=== PATIENT | male | born 1935 | race Caucasian/White ===

== ENCOUNTER → 2018-12-11 09:36 | Outpatient (CLI) | payer MEDICARE, OTHER, SELFPAY ==
--- NOTE | 2018-12-11 | DI.US.S_ITS ---
PROCEDURE: US CAROTID DOPPLER BI INDICATIONS: STENOSIS TECHNIQUE: Color and pulse Doppler interrogation was performed of both carotid systems, with image documentation and velocity measurements. COMPARISON: [facility], , CAROTID ARTERY DOPPLER BILAT, 11/07/2017, 10:27. FINDINGS: Stenosis calculations are based on SRU (Society of Radiologists in Ultrasound) criteria. Right side: Brachial blood pressure: 181/94 mm Hg. Common carotid artery peak systolic velocity: 96 cm/sec. Internal carotid artery peak systolic velocity: 117 cm/sec. Internal carotid artery end diastolic velocity: 43 cm/sec. External carotid artery peak systolic velocity: 71 cm/sec. ICA/CCA peak systolic ratio: 1.22. Curiel scale imaging description: Focal coarse calcified plaque at the proximal internal carotid artery causing distal spectral broadening of the waveform. Percent internal carotid artery stenosis: Less than 50% (by peak systolic velocity criteria). Vertebral artery: Flow direction is antegrade. Left side: Brachial blood pressure: 165/95 mm Hg. Common carotid artery peak systolic velocity: 93 cm/sec. Internal carotid artery peak systolic velocity: 163 cm/sec. Internal carotid artery end diastolic velocity: 35 cm/sec. External carotid artery peak systolic velocity: 96 cm/sec. ICA/CCA peak systolic ratio: 1.76. Curiel scale imaging description: Mild coarse calcification at the carotid bulb. Spectral broadening of the proximal ICA waveform. Percent internal carotid artery stenosis: 50-69%.. Vertebral artery: Flow direction is antegrade. IMPRESSION: 1. Stable, focal plaque at the right proximal ICA causing a stenosis estimated to be just less than 50%, stable. 2. Stable stenosis of the left ICA estimated to be 50-69%. 3. Antegrade vertebral artery flow bilaterally. Dictated by: Cally Tirado M.D. on 12/11/2018 at 10:46 Approved by: Cally Tirado M.D. on 12/11/2018 at 10:58
== END ==
PROVIDERS: PCP Family Medicine Geriatric Medicine; Visit Provider Family Medicine Geriatric Medicine
DX: I65.23 Occlusion and stenosis of bilateral carotid arteries (principal)
CPT/HCPCS: 93880

== ENCOUNTER 2019-10-09 09:58 | Day surgery (SDC) | payer MEDICARE, OTHER, SELFPAY ==
[2019-10-09] VITALS (9 sets, daily range): BP systolic 128–147; BP diastolic 64–77; PULSE 71–78; RESP 10–16; TEMP 36–37; O2SAT 68–99; BMI 22.3
[2019-10-09] MEDS: SODIUM CHLORIDE 0.9% 1,000 ML 200 ML IV (10:44)
[2019-10-09] MEDS: LIDOCAINE 4% SOLN 50 ML 20 ML TOP (11:42)
--- NOTE | 2019-10-09 11:44 | PM.PREOP ---
Pre-operative Note Interval Note History & Physical reviewed/Exam performed by Physician: Yes Changes to H&P: No ASA Class (for procedural sedation): II
[2019-10-09] MEDS: fentaNYL 250 MCG/5 ML INJ IV (12:03)
[2019-10-09] MEDS: MIDAZOLAM 5 MG/5 ML VIAL IV (12:03)
--- NOTE | 2019-10-09 12:12 | PM.OP.ENDO ---
Operative Date/Time/Diagnoses Date of procedure: 10/09/19 Time of procedure: 12:12 Pre-op diagnosis: Screening colonoscopy. History of esophageal ulcer Post-op diagnosis: same (Ulcer in the esophagus is healed. Unable to perform complete colonoscopy due to tortuosity and extensive diverticulosis) Procedure & Clinicians Study performed: EGD. Flexible sigmoidoscopy to 40 cm. Same procedure as scheduled: Yes Indications: History of esophageal ulcer without symptoms. Scope done to confirm healing. Attempt at screening colonoscopy. Unable to get beyond portion of the sigmoid due to severe tortuosity and extensive diverticulosis with probable stricture Surgeon: Rocky De La Torre Procedure Notes SCOAP/Timeout: Performed Procedure in detail: The patient had topical anesthetic applied to oropharynx. She was placed in left lateral decubitus position and underwent IV sedation directed by the surgeon consisting of fentanyl and Versed. A bite block was inserted and the scope was advanced through it into the esophagus. The esophagus was unremarkable. GE junction was noted at 30 cm from the incisors. The stomach insufflated well. There were no lesions seen in the body, antrum or at the incisura. The pyloric channel was patent. The duodenum was unremarkable to the 4th part. The scope was brought back into the stomach and retroflexed. The proximal stomach normal in appearance. The scope was straightened and brought out through the esophagus again. No lesions were seen. There was no narrowing. There was a sharp demarcation between the esophagus and gastric mucosa. There was no evidence of Najera's esophagus. The scope was removed and the patient tolerated the procedure well. The patient was repositioned and given additional sedation. Digital exam was remarkable for a prostate that was not palpable the scope was inserted and advanced with great care through a mind field of diverticuli in the sigmoid colon. There was a great deal tortuosity and a reached a point where I could not torque the scope any further despite it being a pediatric scope and I still could not identify a lumen. I was also having to apply a fair amount of pressure to get to that point. I a was simply unable to advance. The patient was repositioned and I re-evaluated the area and still could not get beyond. After spending about 15 minutes trying to get beyond this point I abandoned the procedure. Patient will be scheduled for barium enema Scope withdrawal time: Not applicable Sedation minutes: 27 Findings: diverticulosis (Extensive sigmoid diverticulosis with probable stricture) Specimen(s): none sent Complications: none Post-procedure Recommendations: Other recommendation (Barium enema to evaluate the remainder of the colon) Follow up: as needed Disposition: PACU
== END 2019-10-09 13:25 | disposition home or self-care (01) ==
PROVIDERS: PCP Family Medicine Geriatric Medicine; Visit Provider Specialist
PROC: 0DJ08ZZ Inspection of Upper Intestinal Tract, Via Natural or Artificial Opening Endoscopic (ICD-10-PCS; CPT 43235; principal; 2019-10-09 11:45)
PROC: 0DJD8ZZ Inspection of Lower Intestinal Tract, Via Natural or Artificial Opening Endoscopic (ICD-10-PCS; CPT 45378; 2019-10-09 11:45)
DX: Z12.11 Encounter for screening for malignant neoplasm of colon (principal); Z53.09 Procedure and treatment not carried out because of other contraindication; Z86.010 Personal history of colon polyps; Z87.19 Personal history of other diseases of the digestive system; I10 Essential (primary) hypertension; Z85.46 Personal history of malignant neoplasm of prostate
CPT/HCPCS: 43235; G0105; 99152; J2250; J3010

== ENCOUNTER → 2019-11-19 13:03 | Outpatient (CLI) | payer MEDICARE, OTHER, SELFPAY ==
--- NOTE | 2019-11-19 | DI.US.S_ITS ---
PROCEDURE: US CAROTID DOPPLER BI INDICATIONS: OCCLUSION AND STENOSISOF CAROTID ARTERIES TECHNIQUE: Color and pulse Doppler interrogation was performed of both carotid systems, with image documentation and velocity measurements. COMPARISON: [facility], , US CAROTID DOPPLER BI, 12/11/2018, 10:00. [facility], , CAROTID ARTERY DOPPLER BILAT, 11/07/2017, 10:27. FINDINGS: Stenosis calculations are based on SRU (Society of Radiologists in Ultrasound) criteria. Right side: Brachial blood pressure: 152/81 mm Hg. Common carotid artery peak systolic velocity: 101 cm/sec. Internal carotid artery peak systolic velocity: 151 cm/sec. Internal carotid artery end diastolic velocity: 42 cm/sec. External carotid artery peak systolic velocity: 96 cm/sec. ICA/CCA peak systolic ratio: 1.5. Curiel scale imaging description: Scattered areas of calcific and prominent soft plaque, appreciable stenosis. Percent internal carotid artery stenosis: 50-69% stenosis proximal right internal carotid artery. This represents a significant interval worsening from the comparison study 12/11/18.. Left side: Brachial blood pressure: 161/81 mm Hg. Common carotid artery peak systolic velocity: 110 cm/sec. Internal carotid artery peak systolic velocity: 227 cm/sec. Internal carotid artery end diastolic velocity: 42 cm/sec. External carotid artery peak systolic velocity: 172 cm/sec. ICA/CCA peak systolic ratio: 2.1. Curiel scale imaging description: Prominent calcific and soft plaque Percent internal carotid artery stenosis: 50-69% stenosis at the threshold of 70% stenosis, within the proximal left internal carotid artery. This represents a significant interval worsening of carotid stenosis. IMPRESSION: Appreciable interval worsening of carotid stenosis with reference to the comparison studies, bilaterally. Current stenosis values are 50-69%, within the proximal internal carotid arteries bilaterally, left greater than right. Dictated by: Siddhartha Vincent M.D. on 11/19/2019 at 17:02 Approved by: Siddhartha Vincent M.D. on 11/19/2019 at 17:09
== END ==
PROVIDERS: PCP Family Medicine Geriatric Medicine; Visit Provider Family Medicine Geriatric Medicine
DX: I65.23 Occlusion and stenosis of bilateral carotid arteries (principal)
CPT/HCPCS: 93880

== ENCOUNTER → 2021-04-15 09:39 | Outpatient (CLI) | payer MEDICARE, OTHER, SELFPAY ==
--- NOTE | 2021-04-15 09:41 | DI.US.S_ITS ---
PROCEDURE: US CAROTID DOPPLER BI INDICATIONS: STENOSIS TECHNIQUE: Color and pulse Doppler interrogation was performed of both carotid systems, with image documentation and velocity measurements. COMPARISON: [facility], CAROTID DOPPLER BI, 11/19/2019, 13:43. [facility], US CAROTID DOPPLER BI, 12/11/2018, 10:00. FINDINGS: Stenosis calculations are based on SRU (Society of Radiologists in Ultrasound) criteria. Right side: Brachial blood pressure: 180/85 mm Hg. Common carotid artery peak systolic velocity: 93 cm/sec. Internal carotid artery peak systolic velocity: 119 cm/sec. Internal carotid artery end diastolic velocity: 17 cm/sec. External carotid artery peak systolic velocity: 127 cm/sec. ICA/CCA peak systolic ratio: 1.3 . Curiel scale imaging description: Mild calcific and soft plaque Percent internal carotid artery stenosis: Less than 50% stenosis . Vertebral artery: Flow direction is antegrade. Left side: Brachial blood pressure: 169/92 mm Hg. Common carotid artery peak systolic velocity: 76 cm/sec. Internal carotid artery peak systolic velocity: 191 cm/sec. Internal carotid artery end diastolic velocity: 59 cm/sec. External carotid artery peak systolic velocity: 121 cm/sec. ICA/CCA peak systolic ratio: 2.5 . Curiel scale imaging description: Moderate calcific and soft plaque Percent internal carotid artery stenosis: 50-69% stenosis within the proximal internal carotid artery on the left. . Vertebral artery: Flow direction is antegrade. IMPRESSION: Less than 50% stenosis at the proximal internal carotid artery on the right, 50-69% stenosis in this same region on the left. Vertebral arterial flow is antegrade in direction. Dictated by: Siddhartha Vincent M.D. on 04/15/2021 at 13:27 Approved by: Siddhartha Vincent M.D. on 04/15/2021 at 13:29
== END ==
PROVIDERS: PCP Family Medicine Geriatric Medicine; Referring Provider Family Medicine; Visit Provider Family Medicine
DX: I65.23 Occlusion and stenosis of bilateral carotid arteries (principal)
CPT/HCPCS: 93880

== ENCOUNTER → 2023-09-13 09:49 | Outpatient (CLI) | payer MEDICARE, OTHER, SELFPAY ==
--- NOTE | 2023-09-13 09:50 | DI.RAD.S_ITS ---
PROCEDURE: FL BARIUM SWALLOW INDICATIONS: Dysphagia COMPARISON: None. FINDINGS: Function: There is moderate esophageal dysmotility with disorganized tertiary contractions. No elicited gastroesophageal reflux. There is mild focal narrowing at the GE junction with transient obstruction of transit of a calibrated barium tablet through the esophagus into the stomach. Morphology: Air-contrast images demonstrate normal mucosal morphology. There is a small sliding hiatal hernia. No esophageal strictures, extrinsic mass effects, or diverticula. Limited images of the stomach demonstrate normal appearance. IMPRESSION: 1. Moderate esophageal dysmotility. 2. Small sliding hiatal hernia. 3. Mild focal thickening at the gastroesophageal junction is suspected. There is transient obstruction of the calibrated barium pill at the GE junction. Consider EGD if clinically indicated. Dictated by: Juanjose Bermudez M.D. on 09/13/2023 at 14:06 Approved by: Juanjose Bermudez M.D. on 09/13/2023 at 14:09
== END ==
PROVIDERS: PCP Family Medicine; Referring Provider Surgery; Visit Provider Surgery
DX: R13.10 Dysphagia, unspecified (principal); K22.4 Dyskinesia of esophagus; K44.9 Diaphragmatic hernia without obstruction or gangrene
CPT/HCPCS: 74220